=== PATIENT | male | born 1975 | race Caucasian/White ===

== ENCOUNTER → 2019-04-14 | Outpatient (CLI) | payer BC ==
[2015-10-25 14:31] VITALS: BP 142/61
[~2019-04-14] MED LIST: ALBU2.5V8 IH; AMLO10TA8 PO; AMLO1TAB15 PO; ATOR40TA59 PO; BUDE10.22 IH; CETI10TA22 PO; CYCL10TA2 PO; FEMARA2.5 MG PO; HYDR-2769 PO; IBUP-1060 PO; IRBE150T3 PO; MONT10TA49 PO; OMEP20CA10 PO; OXYC1TAB15 PO; OXYC20TA34 PO; TIZA4TAB2 PO; TRAM50TA PO
[2019-04-14 12:22] LABS: BASO % 1 % (0-3); EOS # 0.1 x10^3/uL (0.0-0.7); EOS % 1 % (0-3); LYMPH # 1.9 x10^3/uL (1.0-4.8); LYMPH % 25 % (24-48); MEAN CORPUSCULAR HEMOGLOBIN 31 pg (25-35); MEAN CORPUSCULAR HGB CONC 35 g/dL (31-37); MEAN CORPUSCULAR VOLUME 91 fL (79-100); MONO # 0.6 x10^3/uL (0.0-1.1); MONO % 9 % (0-9); NEUT # 4.8 x10^3/uL (1.8-7.7); NEUT % 65 % (31-73); PLATELET COUNT 229 x10^3/uL (140-400); RED BLOOD COUNT 5.74 x10^6/uL (4.30-5.70); RED CELL DISTRIBUTION WIDTH 12.8 % (11.5-14.5); WHITE BLOOD COUNT 7.5 x10^3/uL (4.0-11.0)
--- NOTE | 2019-04-14 12:22 | EKG ---
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 NON SPECIFIC INTRAVENTRICULAR BLOCK Electronically Signed On 04-20-2019 11:07:32 CDT by Moe Sutherland
[2019-04-14 12:48] LABS: ALBUMIN 3.9 g/dL (3.4-5.0); ALBUMIN/GLOBULIN RATIO 1.2 (1.0-1.7); CALCIUM 9.2 mg/dL (8.5-10.1); CREATININE 1.1 mg/dL (0.7-1.3); GFR 72.4; POTASSIUM 4.1 mmol/L (3.5-5.1); TOTAL BILIRUBIN 0.4 mg/dL (0.2-1.0); TOTAL PROTEIN 7.2 g/dL (6.4-8.2)
== END | disposition home or self-care (01) ==
LOC: SURGPAT 11:28
PROVIDERS: ATTEND Neurological Surgery
DX: Z01.818 Encounter for other preprocedural examination (principal); M51.16 Intervertebral disc disorders with radiculopathy, lumbar region; Z88.5 Allergy status to narcotic agent
CPT/HCPCS: 36415; 80053; 85025; 87641; 93005

== ENCOUNTER → 2019-04-22 | Day surgery (SDC) | payer BC ==
--- NOTE | 2019-04-21 14:54 | PREOP HP ---
DATE OF SERVICE: 04/22/2019 HISTORY OF PRESENT ILLNESS: The patient is a pleasant 43-year-old who has difficulty with low back pain and pain which radiates into his left hip and lateral thigh and leg. The problem began in 07/2018. Initially, the pain was extremely severe, but now it has improved. He said that the problem started after lifting a transformer. He rates his pain as a 6/10. Sitting in the mornings are the most painful for him. Standing and moving help him. He has been taking oxycodone, Flexeril and tramadol for the problem. He has been seeing a chiropractor. He has had epidural steroid injections x 3, neither of which have had any significant benefit. There is no significant pain in the left side. He has undergone 2 lumbar surgeries in the past. The first was in 2001 which I believe was at L5-S1 on the right. He did well from that surgery. The second was done in 2014 by me at L3-L4 on the left. He did well from that surgery as well. He feels as though he has been gradually improving. He rates his pain overall as a 6/10. PAST MEDICAL HISTORY: Asthma, headache, neck injury, hypertension, kidney stones, shingles. PAST SURGICAL HISTORY: Discectomy of L5-S1 in 2001, shoulder surgery at L2-L3, laminectomy in October 2015, hernia surgery in 1998. FAMILY HISTORY: Cancer and heart problems. 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 . Rarely exercises. Denies substance abuse. Denies tobacco use. Drinks alcohol 1-2 times per week. ALLERGIES: MORPHINE AND OXYCODONE. CURRENT MEDICATIONS: Omeprazole, tramadol, tizanidine, Zyrtec, amlodipine, irbesartan, atorvastatin, Celebrex, cyclobenzaprine, oxycodone with acetaminophen. REVIEW OF SYSTEMS: A 12-point review of systems was obtained and is noncontributory except for that mentioned above. PHYSICAL EXAMINATION: NEUROSURGERY EXAMINATION: GENERAL APPEARANCE: Alert, pleasant, no acute distress. HEAD: Normocephalic and atraumatic. SKIN: Warm and dry, well-healed lumbar incision. MUSCULOSKELETAL: Lumbar paraspinal muscle bulk is normal, restricted range of motion of the lumbar spine, [id number] tenderness of the lumbar spine with palpation, normal range of motion of the lower extremities bilaterally. EXTREMITIES: No clubbing, cyanosis or edema. NEUROLOGIC: Alert and oriented x 3, normal recent and remote memory, strength 5/5 in bilateral lower extremities, sensory was intact to light touch in bilateral lower extremities. Reflexes are present and symmetric in the lower extremities bilaterally, negative straight leg raising bilaterally, normal gait. IMAGING: I reviewed a lumbar MRI scan. On that study, there are postoperative changes at L3-L4 and L5-S1. There is an element of lateral recess stenosis on the right side at L5-S1. Pertinently, there is a disc central and right-sided at L4-L5 which has enlarged compared to previous MRI scan. This is associated with nerve root compression on the right. ASSESSMENT/ PLAN: I believe the problem at L4-L5 is on the right and is responsible for his pain. I spoke to him about the surgery and the risks involved. He would like to go ahead. We will make the arrangements. JUAN ARRIOLA MD DR: KENDAL/mirian JOB#: [id number] / [id number] NADIA
[~2019-04-22] VITALS: Ht 193 cm; Wt 125.3 kg
[~2019-04-22] MED LIST changes: +BACITRACIN 50,000 UNIT in IV NORMAL SALINE 1000ML BAG 1,000 ML IRR ONE; +BUPIVAC MPF-EPI 0.5%-1:200000 30 ML VIAL. INJ ONE; +CYCLOBENZAPRINE 10 MG TABLET. PO ONE; +DESFLURANE > 120 MINUTES IH ONE; +DEXAMETHASONE SOD PHOS 4 MG/ML VIAL ONE; +GLYCOPYRROLATE 1 MG/5 ML VIAL. ONE; +IV RINGERS,LACTATED 1000ML 1,000 ML IV SCH; +KETOROLAC 60 MG/2 ML INJ FOR OR. ONE; +LIDOCAINE 2% PF 5 ML VIAL. ONE; +MIDAZOLAM HCL/PF 2 MG/2 ML VIAL. ONE; +NEOSTIGMINE METHYLSULFATE 5 MG/5 ML SYRINGE. ONE; +ONDANSETRON PF 4 MG/2 ML VIAL. IV PRN; +ONDANSETRON PF 4 MG/2 ML VIAL. ONE; +OXYC1TAB22 PO; +PHENYLEPHRINE 10 MG/ML VIAL. ONE; +PHENYLEPHRINE in 0.9% NACL PF 1 MG/10 ML SYRINGE. IV ONE; +PROCHLORPERAZINE 10 MG/2 ML VIAL. IV PRN; +PROPOFOL 20 ML IV ONE; +PROPOFOL 50 ML IV ONE; +REMIFENTANIL 2 MG VIAL. IV ONE; +ROCURONIUM 50 MG/5 ML VIAL. ONE; +SURGICEL FIBRILLAR 1X2 EACH. ONE; +THROMBIN TOPICAL 20,000 UNIT SPRAY.SYRN KIT TP ONE; +ceFAZolin SODIUM 3 GM in IV DEXTROSE 5% 100ML 100 ML IV PRN; +ePHEDrine PF IN SALINE 50 MG/10 ML SYRINGE. IV ONE; +fentaNYL PF VIAL 100 MCG/2 ML VIAL IV PRN; +fentaNYL PF VIAL 100 MCG/2 ML VIAL ONE; +fentaNYL PF VIAL 250 MCG/5 ML VIAL ONE; +oxyCODONE/APAP 10/325 1 TAB TABLET ONE; +oxyCODONE/APAP 10/325 1 TAB TABLET PO ONE; +traMADol 50 MG TABLET PO ONE
[2019-04-22] MEDS: fentaNYL PF VIAL 100 MCG/2 ML VIAL IV PRN ×3 (11:15→13:15)
[2019-04-22 11:58] VITALS: BP 138/61
--- NOTE | 2019-04-22 13:03 | DISCH ---
DISCHARGE INSTRUCTIONS Condition on Discharge Condition on Discharge: Stable Activity After Discharge Activity Instructions for Disc: Activity as tolerated, Avoid exertion Bathing Instructions: Shower-keep dressing dry Lifting Instructions after Dis: No heavy lifting, No pulling or pushing, Do not lift >10 pounds Driving Instructions after Dis: Do not drive (for 1 week) Diet after Discharge Additional Diet Restrictions: resume home diet Wound Incision Care Wound/Incision Care: Ice to area for comfort Other wound/incision instructi: may remove dressing in 48 hours if dry then may shower, no soaking Contacting the after DC Call your doctor for: Concerns you may have Follow-Up Follow up with: Dr. Arriola's nurse in 2 weeks [phone] JUAN ARRIOLA MD Apr 22, 2019 13:03
--- NOTE | 2019-04-22 18:53 | OP ---
DATE OF SURGERY: 04/22/2019 PREOPERATIVE DIAGNOSES Herniated lumbar disc, L4-L5 right with severe right lumbar radiculopathy. POSTOPERATIVE DIAGNOSES: Herniated lumbar disc, L4-L5 right with severe right lumbar radiculopathy. OPERATION PERFORMED: Hemilaminotomy and microdiscectomy L4-L5, right. The operation was done with EMG monitoring, SSEP monitoring, fluoroscopy, microscopic dissection. SURGEON: Kofi Arriola M.D. MODELING INSTRUCTOR: YOVANNY Dempsey assisted with the surgery. She assisted with the exposure, the microdecompression and discectomy as well as the closure. OPERATIVE INDICATIONS: The patient is a pleasant 43-year-old man, who developed intractable back and right leg pain, which failed conservative measures. On imaging studies, he had the above-mentioned findings, which was a herniated lumbar disc at L4-L5, which is central and right-sided. He had undergone a number of surgeries in the past and had done well and this represented a new disc herniation. I recommended lumbar microsurgery. I spoke with him about the surgery, the risks, the technique and expected postoperative course and he wished to go ahead. DESCRIPTION OF PROCEDURE: Following general endotracheal anesthesia, the patient was positioned prone on the Casey table. Lumbar region prepped and draped in standard fashion. CHINO hose and AV impulse boots were applied for DVT prophylaxis. The microscope was draped. Fluoroscopy was draped and brought in the field. Monitoring was established. Ancef 3 grams was given less than an hour prior to initiation of surgery. Under fluoroscopic guidance, a midline incision was made directly over the L4-L5 interspace, dissected down through skin and subcutaneous tissue, reflected the paraspinal muscles and placed a Virgin microdisk retractor. I brought in the microscope and using the high speed air drill and microscopic technique, I burred down a generous hemilaminotomy. There was some bone bleeding and I did use small amounts of bone wax for this. I also used the bipolar cautery. I performed a partial foraminotomy with both the drill and the 2.5 mm Kerrison and trimmed away thickened ligamentum flavum and exposed the dura and the exiting L5 root clearly, I gently developed a plane on the lateral aspect of the root and dura and reflected the nerve contents medially gently with a micro nerve root retractor. There was a large bulging disc and I incised the annulus and performed a discectomy with pituitary rongeurs. As I worked, I removed a very large fragment and the entire region became markedly decompressed. I explored carefully and removed a few other small fragments, but had an excellent decompression and discectomy. At this point, I irrigated copiously, explored carefully. There were no retained fragments. The roots were quite free. I removed the retractor, assured myself of perfect hemostasis in the muscle and I closed the wound in layers with absorbable suture. The skin was closed with 4-0 subcuticular stitch. The operation went very well. I was quite pleased with the surgery. KOFI ARRIOLA MD DR: LOLLY/mirian JOB#: [id number] / [id number] NADIA
--- NOTE | 2019-04-26 16:06 | PATHOLOGY ---
[facility] Accession Number: [id number] . 01 Material submitted: . vertebral column - LUMBAR DISC AND DECOMPRESSION . 01 Clinical history: . Lumbar herniated disc with radiculopathic . 02 Diagnosis: Segments of fibrocartilaginous, fibroadipose, and skeletal muscle tissue and bone, lumbar disc and decompression: - Degenerative changes of fibrocartilaginous tissue. (JPM:marry; 04/26/2019) QMS/04/26/2019 . 02 Comment: There is no evidence of an acute inflammatory process or malignancy. . 02 Electronically signed: . Sang Forbes MD, Pathologist NPI- [id number] . 01 Gross description: . The specimen is received in formalin, labeled "Florentino Amos, lumbar disc and decompression", are multiple irregular fragments of domingo-yellow and gritty tissue possibly admixed with bone spicule measuring 3.5 x 2.7 x 1.2 cm in aggregate. Representatively submitted in A1, after decalcification. ([facility]; 04/22/2019) [facility] . 02 Pathologist provided ICD-10: M51.36 . 02 CPT . 624916, 210088 Specimen Comment: A courtesy copy of this report has been sent to Specimen Comment: [phone], . Specimen Comment: Report sent to / DR HOBBS Performed at: 01 [facility] [address], [place] [id number] MD Chris Meng MD Phone: [phone] Performed at: 02 [facility] [address] [place], [place] [id number] MD Sang Forbes MD Phone: [phone]
== END ==
LOC: SURG 07:18
PROVIDERS: ATTEND Neurological Surgery
DX: M51.16 Intervertebral disc disorders with radiculopathy, lumbar region (principal); J45.909 Unspecified asthma, uncomplicated; I10 Essential (primary) hypertension; Z87.442 Personal history of urinary calculi; Z98.890 Other specified postprocedural states; Z72.89 Other problems related to lifestyle; Z88.6 Allergy status to analgesic agent; Z88.5 Allergy status to narcotic agent; Z88.8 Allergy status to other drugs, medicaments and biological substances
CPT/HCPCS: 63030; 76000; 97116; 97162; 97530; A7015; J0171; J1100; J1885; J2001; J2250; J2370; J2405; J2704; J2710; J3010; J3490; J7030; J7120; 88304; 88311